=== PATIENT | female | born 1965 | race African-American/Black ===

== ENCOUNTER 2018-02-16 16:20 | Emergency (ER) | payer SELFPAY ==
[~2018-02-16] VITALS: Ht 167.6 cm; Wt 90.0 kg
[2018-02-16] MEDS ORDERED: MORPHINE SULFATE 4 MG/ML CPJ (NOT FOR IM USE) IV STA (17:06)
[2018-02-16] MEDS ORDERED: SODIUM CHLORIDE 0.9% 1,000 ML IV ONE (17:06)
[2018-02-16] MEDS ORDERED: ONDANSETRON HCL 4MG/2ML VIAL IV STA (17:06)
[2018-02-16 17:51] LABS: BASOPHILS % 0.7 % (0.0-2.0); EOSINOPHILS % 0.9 % (0.0-5.0); HEMATOCRIT. 37.5 % (36.0-48.0); HEMOGLOBIN. 12.1 g/dL (12.0-16.0); LYMPHOCYTES % 29.1 % (20.0-50.0); MEAN CORPUSCULAR HEMOGLOBIN 26.3 pg (28.0-32.0); MEAN CORPUSCULAR VOLUME 81.6 fL (81.0-99.0); MEAN PLATELET VOLUME 8.4 fl (7.4-10.4); MONOCYTES % 6.6 % (2.0-8.0); NEUTROPHILS % 62.7 % (40.0-76.0); PLATELET 281 x1000/uL (130-400); RED BLOOD CELL COUNT 4.59 mill/uL (4.2-5.4); RED CELL DISTRIBUTION WIDTH 16.2 % (11.6-14.6)
[2018-02-16 17:59] LABS: CHLORIDE 108 mEq/L (98-107)
[2018-02-16 18:01] LABS: INR 1.1; PARTIAL THROMBOPLASTIN TIME 29.4 sec (23.4-31.0); PROTHROMBIN TIME 10.7 sec (9.1-11.1)
[2018-02-16 18:05] LABS: ETHANOL BLOOD < 10 mg/dL
[2018-02-16] MEDS ORDERED: LORAZEPAM 2MG/ML CPJ IV ONE (19:00)
[2018-02-16 20:49] VITALS: BP 157/77
[2018-02-16 21:33] LABS: CLARITY URINE CLEAR (CLEAR); COLOR URINE YELLOW (YELLOW); KETONES URINE NEGATIVE (NEGATIVE); LEUKOCYTE ESTERASE URINE NEGATIVE (NEGATIVE); NITRITE URINE NEGATIVE (NEGATIVE); OCCULT BLOOD URINE TRACE (NEGATIVE); PH URINE 6.5 (4.5-8.0); PROTEIN URINE NEGATIVE (NEGATIVE); SPECIFIC GRAVITY URINE 1.012 (1.005-1.030); UROBILINOGEN URINE 0.2 E.U./dL (0.2-1.0)
[2018-02-16 21:44] LABS: *AMPHETAMINES SCREEN URINE NEGATIVE (NEGATIVE); *BARBITURATES SCREEN URINE NEGATIVE (NEGATIVE); *BENZODIAZEPINES SCREEN URINE NEGATIVE (NEGATIVE); *COCAINE SCREEN URINE NEGATIVE (NEGATIVE); METHADONE URINE SCREEN NEGATIVE (NEGATIVE)
[2018-02-16 21:45] LABS: CANNABINOID URINE SCREEN NEGATIVE (NEGATIVE); OPIATES URINE SCREEN PRESUMTIVE POSITIVE (NEGATIVE); PHENCYCLIDINE URINE SCREEN NEGATIVE (NEGATIVE)
== END 2018-02-16 21:47 | disposition home or self-care (01) ==
LOC: ER 17:13
DX: F43.29 Adjustment disorder with other symptoms (principal); G93.49 Other encephalopathy; Z63.4 Disappearance and death of family member; F29 Unspecified psychosis not due to a substance or known physiological condition; R03.0 Elevated blood-pressure reading, without diagnosis of hypertension
CPT/HCPCS: 36415; 70450; 71045; 80053; 80305; 80307; 80329; 81003; 83880; 84484; 85025; 85610; 85730; 93005; 96361; 96374; 99285; G0482; J2270; J2405; J7030; Z7610

== ENCOUNTER 2019-08-03 14:03 | Emergency (ER) | payer SELFPAY ==
[~2019-08-03] VITALS: Ht 167.6 cm; Wt 95.0 kg
[2019-08-03 14:35] VITALS: BP 147/86
== END 2019-08-03 15:56 | disposition left against medical advice (07) ==
LOC: ER 14:10
DX: M54.9 Dorsalgia, unspecified (principal); Z53.21 Procedure and treatment not carried out due to patient leaving prior to being seen by health care provider